=== PATIENT | male | born 1995 | race Caucasian/White ===

== ENCOUNTER 2018-07-05 19:51 | Emergency (ER) | payer SELFPAY ==
[~2018-07-05] VITALS: Ht 180.3 cm; Wt 66.0 kg
[2018-07-05] MEDS ORDERED: ONDANSETRON 4MG ODT PO ONE (23:15)
[2018-07-05] MEDS ORDERED: MORPHINE SULFATE 10 MG/ML CPJ IM ONE (23:15)
[2018-07-05 23:17] VITALS: BP 140/96
== END 2018-07-05 20:40 | disposition home or self-care (01) ==
LOC: ER 19:51
DX: L03.317 Cellulitis of buttock (principal); L02.31 Cutaneous abscess of buttock; T63.301A Toxic effect of unspecified spider venom, accidental (unintentional), initial encounter; F12.10 Cannabis abuse, uncomplicated; F17.200 Nicotine dependence, unspecified, uncomplicated; Y92.89 Other specified places as the place of occurrence of the external cause
CPT/HCPCS: 96372; 99283; J2270; Q0162; 10060

== ENCOUNTER 2021-08-31 17:19 | Emergency (ER) | payer MEDICAID ==
[~2021-08-31] VITALS: Ht 182.9 cm; Wt 66.0 kg
[2021-08-31] MEDS ORDERED: IBUPROFEN 400MG TABLET PO ONE (19:15)
[2021-08-31] MEDS ORDERED: ACETAMINOPHEN 325MG TABLET PO ONE (19:15)
[2021-08-31 19:52] LABS: HEMATOCRIT. 52.9 % (42.0-52.0); MEAN CORPUSCULAR HEMOGLOBIN 28.8 pg (28.0-32.0); MEAN CORPUSCULAR VOLUME 84.6 fL (80.0-94.0); MEAN PLATELET VOLUME 8.4 fl (7.4-10.4); PLATELET 261 x1000/uL (130-400); RED BLOOD CELL COUNT 6.26 mill/uL (4.7-6.1); RED CELL DISTRIBUTION WIDTH 13.3 % (11.6-14.6)
[2021-08-31 19:55] LABS: CHLORIDE 97 mEq/L (98-107)
[2021-08-31] MEDS ORDERED: DOXYCYCLINE HYCLATE 100MG CAPSULE PO ONE (20:00)
[2021-08-31 20:04] VITALS: BP 132/88
[2021-08-31] MEDS ORDERED: SODIUM CHLORIDE 0.9% 1,000 ML IV ONE (20:30)
[2021-08-31] MEDS ORDERED: TOPUD PO ×3 (20:44→20:47)
[2021-08-31] MEDS ORDERED: IBUP-2028 MT ×2 (20:44)
[2021-08-31] MEDS ORDERED: DOXY100C5 MT ×3 (20:44→20:47)
[2021-08-31 21:14] LABS: PLATELET ESTIMATE NORMAL
== END 2021-08-31 20:28 | disposition home or self-care (01) ==
LOC: ER 17:19
DX: J18.9 Pneumonia, unspecified organism (principal); I21.4 Non-ST elevation (NSTEMI) myocardial infarction; N17.9 Acute kidney failure, unspecified; E86.0 Dehydration; M25.512 Pain in left shoulder; M25.552 Pain in left hip; G89.11 Acute pain due to trauma; E87.1 Hypo-osmolality and hyponatremia; Z20.822 Contact with and (suspected) exposure to COVID-19; R73.9 Hyperglycemia, unspecified; R06.6 Hiccough; R00.0 Tachycardia, unspecified; E87.8 Other disorders of electrolyte and fluid balance, not elsewhere classified; Z91.81 History of falling
CPT/HCPCS: 36415; 70450; 71045; 73030; 73502; 80053; 84484; 85025; 87426; 93005; 99285; J7030